=== PATIENT | female | born 1970 | race Native Hawaiian/Other Pacific Islander ===

== ENCOUNTER 2019-03-01 18:22 | Emergency (ER) | payer MEDICAID ==
--- NOTE | 2019-03-01 18:53 | Emergency Department Record ---
History of Present Illness - General Chief complaint: Female Urogenital Problem Stated complaint: BLADDER INFECTION Time Seen by Provider: 03/01/19 18:34 Source: Patient, Family Mode of Arrival: Ambulatory Limitations: No limitations - History of Present Illness Initial comments: 48 yo female presents with odor in her urine for about 3 days. No fevers or chills. No hematuria. She did have a FNA of a right renal cyst one week ago. No bruising. No abdominal pain. No syncope. No other complaints. No NVD. MD Complaint: Dysuria -: Days(s) Location: Other (right flank) Radiation: R flank Severity: Mild Quality: Aching Consistency: Constant Improves with: None Worsens with: Movement Patient : No Associated Symptoms: Dysuria - Related Data Home Medications Medication Instructions Recorded Confirmed Last Taken No Home Med [NO HOME MEDS] 03/01/19 03/01/19 Unknown Allergies Allergy/AdvReac Type Severity Reaction Status Date / Time ciprofloxacin [From Cipro] Allergy Severe MUSCLE PAIN Unverified 12/30/18 14:52 ciprofloxacin HCl Allergy Severe MUSCLE PAIN Unverified 12/30/18 14:52 [From Cipro] codeine Allergy Severe VOMITING Unverified 12/30/18 14:52 morphine Allergy Severe VOMITING Unverified 12/30/18 14:52 nitrofurantoin Allergy Severe HIVES Unverified 12/30/18 14:52 [From Macrobid] nitrofurantoin Allergy Severe HIVES Unverified 12/30/18 14:52 macrocrystalline [From Macrobid] Penicillins Allergy Severe HIVES Unverified 12/30/18 14:52 Sulfa (Sulfonamide Allergy Severe HIVES Unverified 12/30/18 14:52 Antibiotics) Iodine and Iodide Containing Allergy FLUSHING Verified 03/01/19 18:54 Produc Review of Systems Constitutional: Denies: Chills, Fever, Malaise, Weakness Eyes: Denies: Eye discharge ENT: Denies: Congestion Respiratory: Denies: Cough Cardiovascular: Denies: Chest pain Endocrine: Denies: Fatigue Gastrointestinal: Reports: As per HPI. Denies: Abdominal pain, Diarrhea, Nausea, Vomiting Genitourinary: Reports: Dysuria, Frequency Musculoskeletal: Reports: Back pain Skin: Denies: Bruising, Change in color, Rash Neurological: Denies: Headache Psychiatric: Denies: Anxiety Hematological/Lymphatic: Denies: Easy bleeding, Easy bruising Physical Exam - General General Appearance: Alert, Oriented x3, Cooperative, No acute distress Limitations: No limitations - Head Head exam: Atraumatic, Normal inspection - Eye Eye exam: Normal appearance, PERRL. negative: Conjunctival injection, Scleral icterus - ENT ENT exam: Normal exam Ear exam: Normal external inspection Nasal Exam: Normal inspection Mouth exam: Normal external inspection - Neck Neck exam: Normal inspection - Respiratory Respiratory exam: Normal lung sounds bilaterally. negative: Respiratory distress - Cardiovascular Cardiovascular Exam: Regular rate, Normal rhythm, Normal heart sounds - GI/Abdominal GI/Abdominal exam: Soft, Normal bowel sounds. negative: Guarding, Rigid, Tenderness - Rectal Rectal exam: Deferred - exam: Deferred - Extremities Extremities exam: Normal inspection. negative: Pedal edema, Tenderness - Back Back exam: Reports: Normal inspection, CVA tenderness (R), Full ROM - Neurological Neurological exam: Alert, Oriented X3 - Psychiatric Psychiatric exam: Normal affect, Normal mood - Skin Skin exam: Dry, Intact, Normal color, Warm Course - Reevaluation(s) Reevaluation #1: 03/01/19 19:36 The UA is negative 03/01/19 20:[address] of the abdomen is negative for any acute process. The right renal cyst is 6cm. The CT was discussed with her. She will call her urologist that manages the treatment of the cyst for follow up No signs of bleeding or complications on the CT DC to follow up with her PCP 03/02/19 00:52 Disposition Disposition: Discharge Clinical Impression: Flank pain Disposition: Home, Self-Care Condition: (1) Good Instructions: Flank Pain (ED) Additional Instructions: Call your doctor for the next available follow up appointment Review this ER visit and the tests performed with your family doctor Return to the ER for a recheck if worse, any new concerns or questions Forms: Patient Portal Access Time of Disposition: 20:35 Quality - Quality Measures Quality Measures: N/A - Blood Pressure Screening Does Patient Have Any of the Following: No Blood Pressure Classification: Pre-Hypertensive BP Reading Systolic Measurement: 137 Diastolic Measurement: 73 Screening for High Blood Pressure: < Pre-Hypertensive BP, F/U Documented > [G8 950] Pre-Hypertensive Follow-up Interventions: Referral to alternative/primary care provider.
[2019-03-01 18:57] LABS: URINE APPEARANCE CLEAR; URINE BILIRUBIN NEGATIVE (NEGATIVE); URINE BLOOD NEGATIVE (NEGATIVE); URINE COLOR YELLOW; URINE GLUCOSE (UA) NEGATIVE (NEGATIVE); URINE KETONE NEGATIVE (NEGATIVE); URINE LEUKOCYTE ESTERASE NEGATIVE (NEGATIVE); URINE NITRITE NEGATIVE (NEGATIVE); URINE PROTEIN NEGATIVE (NEGATIVE); URINE UROBILINOGEN 0.2 E.U./dL (0.20 - 1.00)
--- NOTE | 2019-03-03 09:02 | CT SCAN REPORT ---
EXAM: CT SCAN OF THE ABDOMEN AND PELVIS HISTORY: PAIN FROM NEEDLE ASPIRATION OF A KIDNEY CYST A WEEK AGO. TECHNIQUE: Serial axial CT scan of the abdomen and pelvis was performed at 2.5 mm intervals from the dome of the diaphragm down to the pubic symphysis without the use of intravenous or oral contrast. No comparison CT's are available. FINDINGS: The lung windows of the lung bases demonstrate no CT evidence of a focal infiltrate or pleural effusion. The visualized heart size and contour is within normal limits. The liver, spleen, pancreas, and right adrenal gland is unremarkable. There is a 1.6 cm left adrenal nodule. If there is further clinical concern then an MRI of the adrenal glands can be obtained for further evaluation. Cholecystectomy clips are identified within the right upper quadrant of the abdomen. There is no CT evidence of hydronephrosis or hydroureter. No renal or ureteral calculi are identified. Within the inferior pole of the left kidney there is a 6.4 cm exophytic Bosniak Type 1 cyst. The contour and caliber of the noncontrasted abdominal aorta is within normal limits. There is no CT evidence of retroperitoneal, pelvic, or inguinal lymphadenopathy. The bowel gas pattern is nonspecific and nonobstructive. There is no CT evidence of free intraperitoneal fluid or free intraperitoneal air. The urinary bladder is unremarkable. The uterus is absent. IMPRESSION: 1. NO CT EVIDENCE OF AN ACUTE INTRAABDOMINAL PROCESS. 2. BOSNIAK TYPE 1 SIMPLE EXOPHYTIC CYST IS NOTED AT THE INFERIOR POLE OF THE RIGHT KIDNEY. OTHERWISE, UNREMARKABLE CT SCAN OF THE KIDNEYS. 3. NONSPECIFIC 1.6 MM NODULE IS NOTED WITHIN THE LEFT ADRENAL GLAND. IF THERE IS FURTHER CLINICAL CONCERN THEN MRI OF THE ADRENAL GLANDS CAN BE OBTAINED FOR FURTHER EVALUATION. JOB NUMBER: [id number] MTDD
== END 2019-03-01 20:44 | disposition home or self-care (01) ==
LOC: ER 18:22
DX: R10.31 Right lower quadrant pain (principal); R30.0 Dysuria; Q61.01 Congenital single renal cyst
CPT/HCPCS: 74176; 81003; 99283

== ENCOUNTER 2019-08-07 17:04 | Emergency (ER) | payer MEDICAID ==
--- NOTE | 2019-08-07 17:10 | Emergency Department Record ---
History of Present Illness - General Stated Complaint: ABD PAIN Time Seen by Provider: 08/07/19 17:06 Source: Patient Mode of Arrival: Ambulatory Limitations: No limitations - History of Present Illness Initial Comments: 49 yo female presents with abdominal pain. The pain is located in the mid left abdomen. The pain started about an hour ago. The pain is sharp. It is located on the left just lateral and above the umbilicus radiating back. No nausea, vomiting, diarrhea, dysuria. The patient was not doing any particular activity. No history of renal stones. No chest pain. MD Complaint: Abdominal pain, Flank pain -: Hour(s) (1) Location: LUQ Radiation: LUQ Migration to: LUQ Severity: Moderate Quality: Sharp, Stabbing Consistency: Constant Improves With: Nothing - Related Data Previous Rx's Medication Instructions Recorded Acetaminophen [Tylenol 325Mg] 650 mg PO Q6H PRN tablet 07/05/19 Ibuprofen [Motrin 600Mg] 600 mg PO Q6H #30 tablet 07/05/19 Allergies Allergy/AdvReac Type Severity Reaction Status Date / Time ciprofloxacin [From Cipro] Allergy Severe MUSCLE PAIN Verified 08/07/19 17:10 ciprofloxacin HCl Allergy Severe MUSCLE PAIN Verified 08/07/19 17:10 [From Cipro] codeine Allergy Severe VOMITING Verified 08/07/19 17:10 morphine Allergy Severe VOMITING Verified 08/07/19 17:10 nitrofurantoin Allergy Severe HIVES Verified 08/07/19 17:10 [From Macrobid] nitrofurantoin Allergy Severe HIVES Verified 08/07/19 17:10 macrocrystalline [From Macrobid] Penicillins Allergy Severe HIVES Verified 08/07/19 17:10 Sulfa (Sulfonamide Allergy Severe HIVES Verified 08/07/19 17:10 Antibiotics) Iodine and Iodide Containing Allergy FLUSHING Verified 08/07/19 17:10 Produc Review of Systems Constitutional: Denies: Chills, Fever, Malaise, Weakness Eyes: Denies: Eye discharge ENT: Denies: Congestion, Throat pain Respiratory: Denies: Cough, Dyspnea Cardiovascular: Denies: Chest pain, Syncope Endocrine: Denies: Fatigue, Polydipsia, Polyuria Gastrointestinal: Reports: Abdominal pain. Denies: Constipation, Diarrhea, Hematemesis, Hematochezia, Melena, Nausea, Vomiting Genitourinary: Denies: Dysuria, Urgency Musculoskeletal: Denies: Arthralgia, Back pain, Joint swelling, Myalgia, Neck pain Skin: Denies: Bruising, Change in color, Rash Neurological: Denies: Headache, Weakness Psychiatric: Denies: Anxiety Hematological/Lymphatic: Denies: Easy bleeding, Easy bruising Past Medical History - SOCIAL HISTORY Smoking Status: Never smoker - RESPIRATORY Hx Respiratory Disorders: No - CARDIOVASCULAR Hx Cardio Disorders: No - NEURO Hx Neuro Disorders: No - GI Hx GI Disorders: No - Hx Genitourinary Disorders: No Comment:: kidney cyst aspiration - ENDOCRINE Hx Endocrine Disorders: No - MUSCULOSKELETAL Hx Musculoskeletal Disorders: No - PSYCH Hx Psych Problems: No - HEMATOLOGY/ONCOLOGY Hx Hematology/Oncology Disorders: Yes Hx Cancer: Yes (surgical) Hx Chemotherapy: Yes Hx Radiation Therapy: Yes Physical Exam - General General Appearance: Alert, Oriented x3, Cooperative, No acute distress Limitations: No limitations - Head Head exam: Atraumatic, Normal inspection - Eye Eye exam: Normal appearance. negative: Conjunctival injection, Scleral icterus - ENT ENT exam: Normal exam, Mucous membranes moist Ear exam: Normal external inspection Nasal Exam: Normal inspection Mouth exam: Normal external inspection - Neck Neck exam: Normal inspection - Respiratory Respiratory exam: Normal lung sounds bilaterally. negative: Respiratory distress - Cardiovascular Cardiovascular Exam: Regular rate, Normal rhythm, Normal heart sounds - GI/Abdominal GI/Abdominal exam: Soft, Normal bowel sounds, Tenderness (left side above and lateral to the umbilicus). negative: Diminished bowel sounds, Distended, Hyper active bowel sounds, Pulsatile mass, Rebound, Rigid - Rectal Rectal exam: Deferred - exam: Deferred - Extremities Extremities exam: Normal inspection. negative: Tenderness - Back Back exam: Reports: Full ROM. Denies: CVA tenderness (R), CVA tenderness (L), Paraspinal tenderness, Tenderness Image of Body Front/Back: 1 - area of pain, soft abdomen, no mass, no obvious hernia - Neurological Neurological exam: Alert, Oriented X3 - Psychiatric Psychiatric exam: Normal affect, Normal mood - Skin Skin exam: Dry, Intact, Normal color, Warm Course - Reevaluation(s) Reevaluation #1: 08/07/19 18:54 The labs were reviewed No acute changes on the CBC or CMP 08/07/19 18:[address] scan was reviewed. No acute process on the CT. 8cm cyst on the R kidney. The patient was given a copy of the CT to discuss with her doctor. 08/07/19 19:02 The patient is aware of the cyst Her pain has completely resolved at this time Medical Decision Making - Lab Data Result diagrams: 08/07/19 17:15 08/07/19 17:15 Disposition Disposition: Discharge Clinical Impression: Abdominal pain Qualifiers: Abdominal location: unspecified location Qualified Code(s): R10.9 - Unspecified abdominal pain Disposition: Home, Self-Care Condition: (1) Good Instructions: Abdominal Pain (ED) Additional Instructions: Review this ER visit and the tests performed with your family doctor Call your doctor for the next available follow up appointment Return to the ER for a recheck if worse, any new concerns or questions Time of Disposition: 19:02 Quality - Quality Measures Quality Measures: N/A - Blood Pressure Screening Does Patient Have Any of the Following: No Blood Pressure Classification: Pre-Hypertensive BP Reading Systolic Measurement: 129 Diastolic Measurement: 81 Screening for High Blood Pressure: < Pre-Hypertensive BP, F/U Documented > [ G8950] Pre-Hypertensive Follow-up Interventions: Referral to alternative/primary care provider.
[2019-08-07] MEDS ORDERED: 0.9 % SODIUM CHLORIDE 1,000 ML BAG IV ONE (17:25)
[2019-08-07] MEDS ORDERED: KETOROLAC 30 MG/ML VIAL IVP ONE (17:26)
[2019-08-07] MEDS ORDERED: ONDANSETRON HCL IV 4 MG/2 ML VIAL IVP ONE (17:41)
[2019-08-07 17:51] LABS: BLOOD UREA NITROGEN 19 mg/dL (6-20); CREATININE 0.7 mg/dL (0.5-0.9); EST GLOMERULAR FILTRATION RATE > 60 mL/min
[2019-08-07 17:52] LABS: LIPASE 40 U/L (13-60); TOTAL PROTEIN 7.4 g/dL (6.6-8.7)
[2019-08-07 17:54] LABS: GLUCOSE,RANDOM 133 mg/dL (74-109)
[2019-08-07 17:57] LABS: ALB/GLOB RATIO 1.6 (1.1-1.8); ALBUMIN 4.6 g/dL (4.0-5.0); ALKALINE PHOSPHATASE 63 U/L (35-104); ALT/SGPT 33 U/L (<33); AST/SGOT 26 U/L (10.0-35.0)
[2019-08-07 18:36] LABS: ABSOLUTE NEUTROPHIL COUNT 4.11; BASO % 0.1 % (0-6); EOS % 1.4 % (0-6); GRAN % 52.4 % (47-80); HEMATOCRIT 45.6 % (35.0-47.0); HEMOGLOBIN 15.3 gm/dl (11.6-16.0); LYMPH % 39.2 % (16-45); MEAN CELL VOLUME 92.5 fl (81-97); MEAN CORPUSCULAR HGB CONC 33.6 g/dl (32-36); MEAN PLATELET VOLUME 10.2 fl (7.4-10.4); MONO % 6.9 % (0-9); PLATELET COUNT 335 K/uL (130-400); RED BLOOD COUNT 4.93 M/uL (3.80-5.40); RED CELL DISTRIBUTION WIDTH 12.9 % (11.5-14.5); WHITE BLOOD COUNT W/O DIFF 7.9 K/uL (4.2-12.2)
--- NOTE | 2019-08-07 18:44 | CT SCAN REPORT ---
EXAMINATION: ABDOMEN/PELVIS WO CONTRAST EXAM DATE:08/07/2019 6:05 PM TECHNIQUE: Spiral CT images were obtained from the lung bases to the ischial tuberosities without int ravenous contrast. Sagittal and coronal 2-D reformats were made from source images. Oral contrast: N o INDICATION: left side pain COMPARISON: 03/01/2019 FINDINGS: CT Abdomen: Evaluation of the solid abdominal organs and vascular structures is limited without intr avenous contrast. Liver: The liver is normal in size and morphology. No focal liver lesions. Bile ducts: Normal caliber bile ducts. Gallbladder: Surgically absent. Pancreas: No focal lesions or peripancreatic inflammation. No dilation of the main pancreatic duct . Spleen: Normal size Adrenals: No mass or other abnormality Kidneys and Ureters: No urinary tract stones or hydronephrosis. Approximately 8 cm homogeneous cyst at the inferior right kidney. GI: The bowel is unremarkable. The appendix is not visualized. Vasculature: Unremarkable. No aneurysmal dilation of the abdominal aorta. Lymph Nodes: No lymphadenopathy. Abdominal Wall: Unremarkable. Peritoneal Cavity: No free intraperitoneal fluid or gas. Retroperitoneum: Unremarkable. Skeletal: Unremarkable. Lung bases: The lung bases are unremarkable. CT Pelvis (In addition to findings described above.): Bladder: The bladder is unremarkable. Uterus: Surgically absent. Lymph nodes: No lymphadenopathy. IMPRESSION: 1. No acute abnormality to explain the patient's abdominal pain. 2. Approximately 8 cm right renal cyst. 3. Cholecystectomy. 4. Other findings as described above. Dictated by: Keon Kennedy MD on 08/07/2019 6:33 PM. .
[2019-08-07 18:58] LABS: URINE APPEARANCE CLEAR; URINE BILIRUBIN NEGATIVE (NEGATIVE); URINE BLOOD NEGATIVE (NEGATIVE); URINE COLOR YELLOW; URINE GLUCOSE (UA) NEGATIVE (NEGATIVE); URINE KETONE NEGATIVE (NEGATIVE); URINE LEUKOCYTE ESTERASE NEGATIVE (NEGATIVE); URINE NITRITE NEGATIVE (NEGATIVE); URINE PROTEIN NEGATIVE (NEGATIVE); URINE UROBILINOGEN 0.2 E.U./dL (0.20 - 1.00)
== END 2019-08-07 19:12 | disposition home or self-care (01) ==
LOC: ER 17:04
DX: R10.12 Left upper quadrant pain (principal); N28.1 Cyst of kidney, acquired
CPT/HCPCS: 74176; 80053; 81003; 83690; 85025; 96374; 96375; 99284; J1885; J2405; J7030

== ENCOUNTER 2019-09-16 13:31 | Emergency (ER) | payer MEDICAID ==
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
[2019-09-16 14:08] LABS: URINE APPEARANCE CLEAR; URINE BILIRUBIN NEGATIVE (NEGATIVE); URINE BLOOD NEGATIVE (NEGATIVE); URINE COLOR YELLOW; URINE GLUCOSE (UA) NEGATIVE (NEGATIVE); URINE KETONE NEGATIVE (NEGATIVE); URINE LEUKOCYTE ESTERASE NEGATIVE (NEGATIVE); URINE NITRITE NEGATIVE (NEGATIVE); URINE PROTEIN NEGATIVE (NEGATIVE); URINE UROBILINOGEN 0.2 E.U./dL (0.20 - 1.00)
== END 2019-09-16 14:20 | disposition home or self-care (01) ==
LOC: ER 13:31
DX: N93.9 Abnormal uterine and vaginal bleeding, unspecified (principal)
CPT/HCPCS: 81003; 99283

== ENCOUNTER 2019-09-23 13:58 | Emergency (ER) | payer MEDICAID ==
--- NOTE | 2019-09-23 14:16 | Emergency Department Record ---
History of Present Illness - General Chief complaint: Head Injury Stated complaint: HEAD INJURY Time Seen by Provider: 09/23/19 14:10 Source: Patient Mode of Arrival: Ambulatory Limitations: No limitations - History of Present Illness Initial comments: 49 yo female presents with a left sided headache, tenderness, nausea since falling after a trip. She hit that left side of the head on a door frame. No LOC. No lacerations. No confusion. No vision changes. No hearing changes. No ataxia. No vomiting. She has point tenderness left upper scalp. No other injuries. No neck pain. No chest or abdominal pain. No extremity injury. MD Complaint: Head injury, Head pain, Fall Onset/Timin -: Days(s) Mechanism of Injury: Mechanical fall Location: Face, Frontal Loss of Consciousness: No Previous Trauma to this Area: No Place: Home Radiation: None Severity: Moderate Quality: Aching, Sharp Consistency: Constant Provoking factors: Other (fall) Associated Symptoms: Denies other symptoms - Related Data Previous Rx's Medication Instructions Recorded Acetaminophen [Tylenol 325Mg] 650 mg PO Q6H PRN tablet 07/05/19 Ibuprofen [Motrin 600Mg] 600 mg PO Q6H #30 tablet 07/05/19 Allergies/Adverse reactions: Allergies Allergy/AdvReac Type Severity Reaction Status Date / Time ciprofloxacin [From Cipro] Allergy Severe MUSCLE PAIN Verified 09/23/19 14:09 ciprofloxacin HCl Allergy Severe MUSCLE PAIN Verified 09/23/19 14:09 [From Cipro] codeine Allergy Severe VOMITING Verified 09/23/19 14:09 morphine Allergy Severe VOMITING Verified 09/23/19 14:09 nitrofurantoin Allergy Severe HIVES Verified 09/23/19 14:09 [From Macrobid] nitrofurantoin Allergy Severe HIVES Verified 09/23/19 14:09 macrocrystalline [From Macrobid] Penicillins Allergy Severe HIVES Verified 09/23/19 14:09 Sulfa (Sulfonamide Allergy Severe HIVES Verified 09/23/19 14:09 Antibiotics) Iodine and Iodide Containing Allergy FLUSHING Verified 09/23/19 14:09 Produc Travel Screening - Travel/Exposure Within Last 30 Days Have you traveled within the last 30 days?: No Review of Systems Constitutional: Denies: Chills, Fever, Malaise, Weakness Eyes: Denies: Eye discharge, Eye pain, Photophobia, Vision change ENT: Denies: Congestion, Throat pain Respiratory: Denies: Cough, Dyspnea Cardiovascular: Denies: Chest pain, Palpitations, Syncope Endocrine: Denies: Fatigue, Polydipsia, Polyuria Gastrointestinal: Reports: Nausea. Denies: Abdominal pain, Diarrhea, Vomiting Genitourinary: Denies: Dysuria, Urgency, Other Musculoskeletal: Denies: Arthralgia, Back pain, Joint swelling, Myalgia, Neck pain Skin: Denies: Bruising, Change in color, Rash Neurological: Reports: Headache. Denies: Abnormal gait, Confusion, Numbness, Paresthesias, Seizure, Tingling, Tremors, Vertigo, Weakness Psychiatric: Denies: Anxiety Hematological/Lymphatic: Denies: Easy bleeding, Easy bruising Past Medical History - SOCIAL HISTORY Smoking Status: Never smoker Alcohol Use: None Drug Use: None - RESPIRATORY Hx Respiratory Disorders: No - CARDIOVASCULAR Hx Cardio Disorders: No - NEURO Hx Neuro Disorders: No - GI Hx GI Disorders: No - Hx Genitourinary Disorders: No Comment:: kidney cyst aspiration - ENDOCRINE Hx Endocrine Disorders: No - MUSCULOSKELETAL Hx Musculoskeletal Disorders: No - PSYCH Hx Psych Problems: No - HEMATOLOGY/ONCOLOGY Hx Hematology/Oncology Disorders: Yes Hx Cancer: Yes (surgical) Hx Chemotherapy: Yes Hx Radiation Therapy: Yes Family Medical History Any Significant Family History?: No Physical Exam - General General Appearance: Alert, Oriented x3, Cooperative, No acute distress Limitations: No limitations - Head Head exam: Atraumatic, Normal inspection Head exam detail: Other (tenderness) Image of Face/Head: 1 - tender to palpation, normal inspection - Eye Eye exam: Normal appearance, PERRL, EOMI. negative: Conjunctival injection, Nystagmus, Scleral icterus - ENT ENT exam: Normal exam, Mucous membranes moist Ear exam: Normal external inspection Nasal Exam: Normal inspection Mouth exam: Normal external inspection Teeth exam: Normal inspection Throat exam: Normal inspection - Neck Neck exam: Normal inspection, Full ROM. negative: Tenderness - Respiratory Respiratory exam: Normal lung sounds bilaterally. negative: Respiratory distress - Cardiovascular Cardiovascular Exam: Regular rate, Normal rhythm, Normal heart sounds - GI/Abdominal GI/Abdominal exam: Soft. negative: Tenderness - Rectal Rectal exam: Deferred - exam: Deferred - Extremities Extremities exam: Normal inspection - Back Back exam: Denies: CVA tenderness (R), CVA tenderness (L) - Neurological Neurological exam: Alert, CN II-XII intact, Normal gait, Oriented X3, Reflexes normal, Other (No PND, normal FTN, no ataxia). negative: Abnormal gait, Altered, Motor sensory deficit - Psychiatric Psychiatric exam: Normal affect, Normal mood - Skin Skin exam: Dry, Intact, Normal color, Warm Course Vital Signs 09/23/19 14:02 Temperature 98.1 F Pulse Rate 90 Respiratory 20 Rate Blood Pressure 119/75 Pulse Ox 95 - Reevaluation(s) Reevaluation #1: 09/23/19 14:16 Given the location of the injury, duration of pain and associated nausea, HCT was ordered 09/23/19 15:03 HCT is negative Disposition Disposition: Discharge Clinical Impression: Contusion of head Disposition: Home, Self-Care Condition: (1) Good Instructions: Concussion (ED) Additional Instructions: Review this ER visit and the tests performed with your family doctor Call your doctor for the next available follow up appointment Return to the ER for a recheck immediately if worse, any new concerns or questions Forms: Patient Portal Access Time of Disposition: 15:03 Quality - Quality Measures Quality Measures: N/A - Blood Pressure Screening Does Patient Have Any of the Following: No Blood Pressure Classification: Normal BP Reading Systolic Measurement: 105 Diastolic Measurement: 58 Screening for High Blood Pressure: < Normal BP, F/U Not Required > [[id number]]
--- NOTE | 2019-09-23 14:46 | CT SCAN REPORT ---
EXAMINATION: CT Head without Contrast EXAM DATE: 09/23/2019 2:35 PM TECHNIQUE: Routine axial CT was acquired from skull base through vertex without contrast. Sagittal an d coronal isotropic reformatted images are reviewed. INDICATION: hit head 9 days ago, headache, nausea. COMPARISON: None. ENCOUNTER: Not applicable HAND DOMINANCE: Unknown. FINDINGS: No intracranial fluid collection or hemorrhage. Brain attenuation and configuration are within normal limits. Age-appropriate CSF spaces. No significant extraneous finding. IMPRESSION: No acute posttraumatic intracranial or osseous sequela Dictated by: Sumeet Panda MD on 09/23/2019 2:43 PM. .
== END 2019-09-23 15:17 | disposition home or self-care (01) ==
LOC: ER 13:58
DX: S00.03XA Contusion of scalp, initial encounter (principal); R51 Headache; R11.0 Nausea; W01.198A Fall on same level from slipping, tripping and stumbling with subsequent striking against other object, initial encounter; Y92.009 Unspecified place in unspecified non-institutional (private) residence as the place of occurrence of the external cause
CPT/HCPCS: 70450; 99284